=== PATIENT | male | born 1995 | race African-American/Black ===

== ENCOUNTER 2019-05-17 13:55 | Emergency (ER) | payer BC ==
[~2019-05-17] VITALS: Ht 177.8 cm; Wt 92.9 kg
[2019-05-17] MEDS ORDERED: ONDANSETRON ODT 4 MG PO ONE (14:30)
[2019-05-17 14:50] LABS: BASOPHILS # (AUTO) 0.01 x10^3/uL (0-0.1); BASOPHILS % (AUTO) 0 % (0-1); EOSINOPHILS # (AUTO) 0.01 x10^3/uL (0-0.4); EOSINOPHILS % (AUTO) 0 % (1-7); LYMPHOCYTES # (AUTO) 0.56 x10^3/uL (1-3.4); LYMPHOCYTES % (AUTO) 5 % (22-44); MD NO; MEAN CORPUSCULAR HGB CONC 33.3 g/dL (33.2-36.2); MEAN CORPUSCULAR VOLUME 87.1 fL (81-97); MEAN PLATELET VOLUME 7.6 fL (7.4-10.4); MONOCYTES # (AUTO) 0.35 x10^3/uL (0.2-0.8); MONOCYTES % (AUTO) 3 % (2-9); NEUTROPHILS # (AUTO) 10.59 x10^3/uL (1.8-6.8); NEUTROPHILS % (AUTO) 92 % (42-75); PLATELET COUNT 193 x10^3/uL (130-400); RED BLOOD COUNT 5.53 x10^6/uL (4.38-5.82); RED CELL DISTRIBUTION WIDTH 13.1 % (9.4-14.8)
[2019-05-17 15:01] LABS: ALBUMIN 4.4 g/dL (3.4-5.0); ANION GAP 4 mmol/L (5-15); CALCIUM 8.6 mg/dL (8.5-10.1); CHLORIDE 104 mmol/L (98-107)
[2019-05-17 15:04] LABS: ALANINE AMINOTRANSFERASE 18 U/L (12-78); ALKALINE PHOSPHATASE 69 U/L (45-117); CREATININE 1.14 mg/dL (0.7-1.3)
--- NOTE | 2019-05-17 16:20 | NUR ---
PT AMBULATED STEADILY TO ROOM FROM LOBBY WITH RN AND SO. PT STATES GENERALIZED BODY ACHES/FEVER/N/V X THIS AM. HX OF SAME, "I WAS SEEN HERE BEFORE WITH THE SAME SYMPTOMS- THEY TOLD ME IT WAS THE FLU". PT DENIES CP/SOB/PRODUCTIVE COUGH/ABD PAIN/PAINFUL URINATION. BP/SPO2 MONITOR IN PLACE.
[2019-05-17] MEDS ORDERED: LEVE100S6 PO (16:22)
[2019-05-17] MEDS ORDERED: INHALER (16:22)
[2019-05-17] MEDS ORDERED: ACETAMINOPHEN 500 MG TABLET ONE (16:26)
[2019-05-17] MEDS ORDERED: KETOROLAC 30 MG/1 ML ONE (16:26)
[2019-05-17] MEDS ORDERED: ONDANSETRON ODT 4 MG ONE (16:26)
[2019-05-17] MEDS ORDERED: KETOROLAC 30 MG/1 ML IM ONE (16:30)
[2019-05-17] MEDS ORDERED: ACETAMINOPHEN 500 MG TABLET PO ONE (16:30)
--- NOTE | 2019-05-17 16:34 | NUR ---
PT ATTEMPTED UA. UNABLE TO PROVIDE AT THIS TIME. PT MEDICATED PER EMAR FOR PAIN/NAUSEA/FEVER. BP/SPO2 MONITORING IN PLACE. FRIEND/PT UPDATED TO POC (LABS/RESULTS/RECHECK) AND DEMONSTRATES UNDERSTANDING.
[2019-05-17 16:47] LABS: RAPID INFLUENZA A Negative (Negative); RAPID INFLUENZA B Negative (Negative)
--- NOTE | 2019-05-17 17:04 | NUR ---
LAB AT BEDSIDE. BC X TWO DRAWN. PT REMAINS UNABLE TO PROVIDE UA
[2019-05-17 17:33] VITALS: BP 115/70
--- NOTE | 2019-05-17 17:33 | NUR ---
PT REPORTS IMPROVEMENT IN S/S. DENIES FURTHER MEDICATIONS. UA COLLECTED AND SENT
[2019-05-17 18:03] LABS: MICROSCOPIC INDICATED
[2019-05-17 18:05] LABS: CULTURE INDICATED? YES
--- NOTE | 2019-05-17 18:20 | NUR ---
DC EDUCATION PROVIDED, PT DEMONSTRATES UNDERSTANDING. PT AMBULATED STEADILY TO DC WITH RN AND SO.
== END 2019-05-17 18:22 | disposition home or self-care (01) ==
LOC: ED 18:20
DX: J06.9 Acute upper respiratory infection, unspecified (principal); B34.9 Viral infection, unspecified; R19.7 Diarrhea, unspecified; R11.2 Nausea with vomiting, unspecified; F17.200 Nicotine dependence, unspecified, uncomplicated
CPT/HCPCS: 36415; 71046; 74021; 80053; 81001; 83605; 83690; 85025; 87040; 87086; 87400; 96372; 99284; J1885; Q0162

== ENCOUNTER 2020-10-15 11:07 | Emergency (ER) | payer BC ==
[~2020-10-15] VITALS: Ht 172.7 cm; Wt 160.0 kg
[~2020-10-15 11:07] MED LIST: INHALER; LEVE100S6 PO
--- NOTE | 2020-10-15 11:26 | NUR ---
ASSUMED CARE OF PT. HE WAS BIB [facility] D/T BLOOD BORNE PATHOGEN EXPOSURE AND NEEDING TO R/O HIV, HEP B WHICH MD HAS ORDERED. PT UNCOOPERATIVE W/ ASSESSMENT AND WILL NOT FOLLOW DIRECTION I.E. OPEN EYES AND IS NOT RESPONSIVE. PT VSS, REG/UNLABORED BREATHING. ABRASION ON KNUCKLES, OTHERWISE SKIN LOOKS INTACT. MD ORDERED NECESSARY LABS AND HAS STATED PT IS MEDICALLY CLEAR.
--- NOTE | 2020-10-15 11:34 | NUR ---
REVIEWED D/C PAPERWORK W/ PT W INSTRUCTION FOR SKIN CARE FOR ABRASION TO PREVENT INFECTION. [facility] IS AWARE PT CAN GO WHEN THEY ARE READY.
[2020-10-15 11:35] VITALS: BP 96/55
== END 2020-10-15 12:06 | disposition home or self-care (01) ==
LOC: ED 12:00
DX: S00.81XA Abrasion of other part of head, initial encounter (principal); S60.512A Abrasion of left hand, initial encounter; S60.511A Abrasion of right hand, initial encounter; S80.812A Abrasion, left lower leg, initial encounter; S80.811A Abrasion, right lower leg, initial encounter; X58.XXXA Exposure to other specified factors, initial encounter; Y93.89 Activity, other specified; Y92.89 Other specified places as the place of occurrence of the external cause; Y99.8 Other external cause status
CPT/HCPCS: 36415; 86705; 86706; 86803; 87340; 87806; 99283; G0475